=== PATIENT | female | born 1955 | race Caucasian/White ===

== ENCOUNTER → 2017-01-01 | Outpatient (CLI) | payer BC | LOC: FIMAGING 14:25 | DX: Z12.31 Encounter for screening mammogram for malignant neoplasm of breast (principal) | CPT/HCPCS: G0202 ==

== ENCOUNTER → 2017-03-12 | Outpatient (CLI) | payer BC | LOC: FIMAGING 10:31 | PROVIDERS: ATTEND Registered Nurse | DX: E04.1 Nontoxic single thyroid nodule (principal) ==

== ENCOUNTER 2018-10-24 17:06 | Emergency (ER) | payer OTHER ==
--- NOTE | 2018-10-24 17:55 | EDPHY ---
H & P Time Seen by Provider: 10/24/18 17:35 HPI/ROS: CHIEF COMPLAINT: left glover laceration HISTORY OF PRESENT ILLNESS: Patient is a 63-year-old female who presents emergency department with a left glover laceration. Patient was struck by another skier. She saw the [facility] the put Steri-Strips on the wound and recommended she come to the emergency department. Patient is able to ambulate without difficulty. No numbness or tingling. Patient did not sustain any other injury. REVIEW OF SYSTEMS: Negative Past Medical/Surgical History: Hypothyroidism Smoking Status: Never smoked Physical Exam: Vitals noted General Appearance: Alert and no distress. Head: Pupils equal. Normal. Respiratory: No respiratory distress. Cardiac: regular rate and rhythm. Extremities: Patient is a 2.5 cm laceration on her left glover. This does not involve any deep structures. She has normal range of motion of her toes, foot and ankle. Patient is able to ambulate without difficulty. Neurovascular intact distally. Skin: No rashes or lesions. Neuro: Alert. Normal mood and affect. Constitutional: Initial Vital Signs Temperature (C) 36.6 C 10/24/18 17:07 Heart Rate 67 10/24/18 17:07 Respiratory Rate 16 10/24/18 17:07 Blood Pressure 158/100 H 10/24/18 17:07 O2 Sat (%) 95 10/24/18 17:07 O2 Delivery Mode Room Air Allergies/Adverse Reactions: No Known Allergies Allergy (Verified 10/24/18 17:07) Home Medications: Medication Instructions Recorded Levothyroxine [Synthroid 100 mcg 100 mcg PO DAILY06 10/24/18 (*)] Medical Decision Making ED Course/Re-evaluation: In the emergency department I discussed possible etiologies with the patient. I answered all her questions. Procedure: Laceration repair. Verbal consent was obtained from the patient. The 2.5 cm laceration on the left glover was anesthetized in the usual fashion. The wound was irrigated, draped and explored to its base with a gloved finger. There were no deep structures involved. No muscle injury was identified. No foreign body The wound was repaired with 5 0 Ethilon. The wound repair was simple. The procedure was performed by myself. Patient was given wound care instructions. She will return with worsening symptoms. Differential Diagnosis: My differential includes but is not limited to laceration, muscle injury, ligamentous injury, foreign body, fracture Departure - Departure Disposition: Home, Routine, Self-Care Clinical Impression: Leg laceration Qualifiers: Encounter type: initial encounter Laterality: left Qualified Code(s): S81.812A - Laceration without foreign body, left lower leg, initial encounter Condition: Good Instructions: Care For Your Stitches (ED), Laceration (ED) Additional Instructions: You should have her stitches removed in 8-9 days. Keep your wound clean and dry. Apply bacitracin twice daily. You been given follow-up with the on-call physician Dr. Lynn. You can see your primary care physician as well if needed. Referrals: Tenzin Lynn MD [Medical Doctor] - 5-7 days, if not improved
[2018-10-24 18:45] VITALS: BP 125/69
== END 2018-10-24 18:46 | disposition home or self-care (01) ==
PROC: 0HQLXZZ Repair Left Lower Leg Skin, External Approach (ICD-10-PCS; principal; 2018-10-24)
DX: S81.812A Laceration without foreign body, left lower leg, initial encounter (principal); V00.328A Other snow-ski accident, initial encounter; Y93.23 Activity, snow (alpine) (downhill) skiing, snowboarding, sledding, tobogganing and snow tubing; Y92.838 Other recreation area as the place of occurrence of the external cause; E03.9 Hypothyroidism, unspecified

== ENCOUNTER 2018-12-05 11:16 | Emergency (ER) | payer OTHER ==
--- NOTE | 2018-12-05 11:25 | EDPHY ---
H & P Stated Complaint: R knee injury Time Seen by Provider: 12/05/18 11:25 HPI/ROS: HPI: This is a 63-year-old female who presents with Chief Complaint: Right knee injury, slip on kitchen floor Location: Right knee Quality: injury Duration: 2 hr prior to arrival Signs and Symptoms: No bleeding, no radiation, no numbness, no weakness, no tingling, no incontinence, + decreased range of motion, + swelling, + pain, no fever Timing: Acute Severity: Moderate Context: Patient was picking up after the dog when she accidentally tripped over him and twisted her right knee. She reports that she everted it and felt a popping sensation in the lateral aspect. She reports that she is unable to bear weight secondary to pain and has swelling in the knee that has rapidly progressed over the last 1 hr. Denies LOC/head injury/neck pain/dizziness/ nausea/vomiting/amnesia. Modifying Factors: None Comment: ROS: A comprehensive 10 system review of systems is otherwise negative aside from elements mentioned in the history of present illness. MEDICAL/SURGICAL/SOCIAL HISTORY: Medical history: hypothyroid, endometrial CA. Surgical history: Denies Social history: Never smoked. Retired. . CONSTITUTIONAL: Well-developed, well-nourished, elderly white female, awake and alert, no obvious distress HEENT: Atraumatic and normocephalic. NECK: supple, no midline tenderness, flexion 45 degrees, extension 45 degrees, right and left lateral flexion 45 degrees. Cardiovascular: Normal S1/S2, regular rate, regular rhythm, without murmur rub or gallop. PULMONARY/CHEST: Symmetrical and nontender. Clear to auscultation bilaterally. Good air movement. No accessory muscle usage. ABDOMEN: Soft, nondistended, nontender. EXTREMITIES: 2/2 pulses, strength 5/5, right KNEE: Mild effusion, no medial joint line tenderness and moderate lateral joint line tenderness, full extension to 180, flexion decreased to 75. Moderate pain with varus and valgus exam. No pain with anterior drawer or posterior drawer test. Extensor mechanism intact. DIP/PIP/MCP flexion/extension intact with good light touch sensation. no deformities, no clubbing, no cyanosis or edema. NEUROLOGICAL: no focal neuro deficits. GCS 15. Light touch sensation intact. SKIN: Warm and dry, no erythema. no rash. Good capillary refill. Source: Patient Exam Limitations: No limitations - Personal History Current Tetanus/Diphtheria Vaccine: Yes Current Tetanus Diphtheria and Acellular Pertussis (TDAP): Yes - Medical/Surgical History Hx Asthma: No Hx Chronic Respiratory Disease: No Hx Diabetes: No Hx Cardiac Disease: No Hx Renal Disease: No Hx Cirrhosis: No Hx Alcoholism: No Hx HIV/AIDS: No Hx Splenectomy or Spleen Trauma: No Other PMH: hypothyroid, edometrial CA - Social History Smoking Status: Never smoked Constitutional: Initial Vital Signs Temperature (C) 37.1 C 12/05/18 11:22 Heart Rate 73 12/05/18 11:22 Respiratory Rate 16 12/05/18 11:22 Blood Pressure 144/80 H 12/05/18 11:22 O2 Sat (%) 98 12/05/18 11:22 O2 Delivery Mode Room Air Allergies/Adverse Reactions: No Known Allergies Allergy (Verified 12/05/18 11:22) Home Medications: Medication Instructions Recorded Levothyroxine [Synthroid 100 mcg 100 mcg PO DAILY06 10/24/18 (*)] oxyCODONE/APAP 5/325 [Percocet 1 - 2 tab PO Q4H PRN #10 tab 12/05/18 5/325 (*)] Medical Decision Making - Diagnostics Imaging Results: Imaging Impressions Knee X-Ray 12/05/18 11:25 Impression: Nondisplaced lateral tibial plateau fracture. Moderate suprapatellar joint effusion. Extremity CT 12/05/18 12:07 Impression: Mildly comminuted depressed fracture of the posterolateral tibial plateau, as above. Moderate suprapatellar joint effusion. Procedures: Procedure: Splint placement. A right knee immobilizer and crutches were applied by the Emergency Room audiology technician. After application of the splint I returned and re-examined the patient. The splint was adequately immobilizing the joint and distal to the splint the patient's circulation and sensation was intact. ED Course/Re-evaluation: Vital signs reviewed and stable upon arrival. Right knee x-ray per radiology read shows minimally displaced tibial plateau fracture on the lateral aspect Decision made to obtain CT of the knee for further evaluation 1320: Informed by Radiology that CT knee shows: Mildly comminuted depressed fracture of the posterolateral tibial plateau, as above. Moderate suprapatellar joint effusion. Placed in knee immobilizer, crutches 1322: ED decision to consult Dr. Ndiaye for tibia plateau fracture and internal derangement 1357: Spoke with Dr. Ndiaye who recommends knee immobilizer, toe-touch weight- bearing status, pain control, call tomorrow for follow-up appointment this week. No signs of neurovascular compromise/tenting of skin/compartment syndrome/ extremities and joints examined above and below area of concern and are neurovascularly intact. This patient was seen under the supervision of my secondary supervising physician. I evaluated care for this patient with attending. Discussed this patient with Dr. Moeller. Differential Diagnosis: Knee injury while [] including but not limited to fracture, ACL injury, contusion, muscular strain, and meniscus injury. - Data Points Medications Given: Discontinued Medications Ibuprofen (Motrin) 600 mg PO EDNOW ONE Stop: 12/05/18 12:36 Last Admin: 12/05/18 12:36 Dose: 600 mg Oxycodone/Acetaminophen (Percocet 5/325) 1 tab PO EDNOW ONE Stop: 12/05/18 12:18 Last Admin: 12/05/18 12:35 Dose: Not Given Departure - Departure Disposition: Home, Routine, Self-Care Clinical Impression: Lateral collateral ligament deficiency of right knee Fracture of right tibial plateau Qualifiers: Encounter type: initial encounter Fracture type: closed Qualified Code(s): S82.141A - Displaced bicondylar fracture of right tibia, initial encounter for closed fracture Condition: Good Instructions: Oxycodone/Acetaminophen (By mouth), Knee Sprain (ED), Knee Immobilizer (ED), Tibial Tubercle Osteotomy (DC) Additional Instructions: Wear the knee immobilizer continuously except shower until seen by Orthopedics. Use crutches to aid ambulation. Start with toe-touch weight-bearing status. Take Tylenol 650 mg every 4 hours and/or Ibuprofen 600 mg every 8 hours with food as needed for pain. Use Percocet every 6 hours as needed for severe/break through pain. Do not use Tylenol and Percocet concomitantly. Apply ice for 30 minutes at a time; 2-3 times per day for the next 1-2 days. Follow up with Orthopedics in 2-3 days at which time they will evaluate and recommend with you if conservative management versus surgery is indicated. Call Dr. Ndiaye's office tomorrow to schedule your follow up appointment. Follow-Up: Please follow-up as noted above. Follow-up sooner if your condition worsens or if you develop any new problems. Call as soon as possible for an appointment. Be clear when you call for an appointment that this is an Emergency Department follow-up. Contact the Emergency Department if you have trouble arranging follow-up care. Our referrals are not based on your insurance network. When time allows, contact your insurance carrier to verify the referral physician is in your plan. If not, get a referral for an in-network operations specialist. Referrals: Tawnya Srpague PA [Primary Care Provider] - As per Instructions Sravani Ndiaye MD [Medical Doctor] - As per Instructions Prescriptions: oxyCODONE/APAP 5/325 [Percocet 5/325 (*)] 1 - 2 tab PO Q4H PRN #10 tab PRN Reason: Pain, Severe
[2018-12-05] MEDS ORDERED: OXYCODONE/APAP 5/325 TAB PO ONE (12:17)
[2018-12-05] MEDS ORDERED: IBUPROFEN 600 MG TAB PO ONE ×2 (12:34→12:35)
[2018-12-05 14:22] VITALS: BP 122/76
== END 2018-12-05 14:22 | disposition home or self-care (01) ==
DX: S82.141A Displaced bicondylar fracture of right tibia, initial encounter for closed fracture (principal); E03.9 Hypothyroidism, unspecified; W01.0XXA Fall on same level from slipping, tripping and stumbling without subsequent striking against object, initial encounter; Y93.K9 Activity, other involving animal care; Y92.000 Kitchen of unspecified non-institutional (private) residence as the place of occurrence of the external cause
CPT/HCPCS: L1830